=== PATIENT | female | born 1970 | race Caucasian/White ===

== ENCOUNTER 2019-03-06 22:00 | Emergency (ER) | payer OTHER ==
[~2019-03-06] VITALS: Ht 170.2 cm; Wt 90.9 kg
[2019-03-06 22:08] VITALS: BP 130/92
[2019-03-06] MEDS ORDERED: ASPIRINCHW 81MG PO (22:14)
[2019-03-06] MEDS ORDERED: ZETIA10 MG PO (22:19)
[2019-03-06] MEDS ORDERED: SULFASALAZIN500 M1 PO (22:19)
[2019-03-06] MEDS ORDERED: LIPITOR20 MG PO (22:19)
[2019-03-06] MEDS ORDERED: WELLBUTRIN SR150 MG PO (22:20)
[2019-03-06] MEDS ORDERED: OMEPRAZOLE10 MG PO (22:20)
[2019-03-06] MEDS ORDERED: HYDROCHLOROT25 MG PO (22:20)
[2019-03-06] MEDS ORDERED: VITAMIN D1000 UNI2 PO (22:20)
== END 2019-03-06 22:44 | disposition home or self-care (01) | DRG 605 ==
LOC: ED 22:00
PROC: 0HQGXZZ Repair Left Hand Skin, External Approach (ICD-10-PCS; principal; 2019-03-06)
DX: S61.112A Laceration without foreign body of left thumb with damage to nail, initial encounter (principal); I10 Essential (primary) hypertension; W26.0XXA Contact with knife, initial encounter